=== PATIENT | female | born 1960 | race Caucasian/White ===

== ENCOUNTER 2023-09-13 08:11 | Emergency (ER) | payer BC, OTHER | END 2023-09-13 09:26 | disposition home or self-care (01) | LOC: DL.ED 08:11 | DX: S52.502A Unspecified fracture of the lower end of left radius, initial encounter for closed fracture (principal); Z88.1 Allergy status to other antibiotic agents; Z88.5 Allergy status to narcotic agent; W00.0XXA Fall on same level due to ice and snow, initial encounter | CPT/HCPCS: 29125; 73110-LT; 99282; 99283 ==

== ENCOUNTER 2024-09-09 05:26 | Day surgery (SDC) | payer BC, OTHER ==
[2024-09-09] MEDS ORDERED: fentaNYL 100 MCG/2 ML SDV IV ONE (05:27)
[2024-09-09] MEDS ORDERED: Midazolam 1 MG/ML 2 ML SDV IV ONE (05:27)
[2024-09-09] MEDS: Dextrose 5%-0.45% NaCl 1,000 ML IV SCH (05:46)
[2024-09-09] MEDS ORDERED: fentaNYL 100 MCG/2 ML SDV ONE (06:08)
[2024-09-09] MEDS ORDERED: Midazolam 1 MG/ML 2 ML SDV ONE (06:08)
[2024-09-09] MEDS: fentaNYL 100 MCG/2 ML SDV IV ONE ×6 (06:36→06:48)
[2024-09-09] MEDS: Midazolam 1 MG/ML 2 ML SDV IV ONE ×6 (06:37→06:43)
== END 2024-09-09 08:05 | disposition home or self-care (01) ==
LOC: DL.ENDO 05:26
PROVIDERS: ATTEND Internal Medicine Gastroenterology
DX: Z12.11 Encounter for screening for malignant neoplasm of colon (principal); D12.2 Benign neoplasm of ascending colon; K57.30 Diverticulosis of large intestine without perforation or abscess without bleeding
CPT/HCPCS: 45385; J2250; J3010; J7799